=== PATIENT | male | born 1950 | race Caucasian/White ===

== ENCOUNTER → 2019-12-30 | Outpatient (CLI) | payer MEDICARE ==
--- NOTE | 2019-12-30 10:57 | RADIOLOGY REPORT (SQ) ---
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 TECHNIQUE: Multiplanar multisequence imaging performed without and with contrast including sagittal, axial and coronal T2, axial T1, axial gradient fat sat T1, axial, sagittal and coronal fat sat T1 po st contrast. CONTRAST TYPE AND DOSE: 20 mL Prohance. RENAL FUNCTION: GFR > 60. LIMITATIONS: Motion artifact. FINDINGS: LIVER: Normal size. No masses. No dilated ducts. CBD normal. SPLEEN: Normal size. No focal lesions. PANCREAS: No masses. No adjacent inflammation or peripancreatic fluid collections. Pancreatic duct no t dilated. GALLBLADDER: Surgically absent. ADRENAL GLANDS: No significant masses or asymmetry. RIGHT KIDNEY AND URETER: No masses. No hydronephrosis. LEFT KIDNEY AND URETER: No masses. No hydronephrosis. AORTA AND VESSELS: No aneurysm. No dissection. Renal arteries, SMA, celiac without stenosis. RETROPERITONEUM: No retroperitoneal adenopathy, hemorrhage or masses. BOWEL: No visualized masses. No inflammation. No significant dilatation. ABDOMINAL WALL AND PERITONEUM: No hernias. No free fluid. BONES: No acute or significant findings. OTHER: No other significant finding. IMPRESSION: NORMAL MRI OF THE ABDOMEN WITHOUT AND WITH CONTRAST. NO FOCAL HEPATIC LESIONS. TECHNICAL DOCUMENTATION: JOB ID: [id number] [employer]- All Rights Reserved Reading location - IP/workstation name: [email or web address]
== END ==
LOC: RAD 08:59
PROVIDERS: ATTEND Internal Medicine
DX: C15.5 Malignant neoplasm of lower third of esophagus (principal)
CPT/HCPCS: 82565; 74183; A9576

== ENCOUNTER 2020-01-07 11:04 | Day surgery (SDC) | payer MEDICARE ==
[~2020-01-07 11:04] MED LIST: CEFAZOLIN 1 GM/D5W RTU 1 GM/50 ML RTUPB IV ONE; CEFAZOLIN 1 GM/D5W RTU 1 GM/50 ML RTUPB IV PRN
[2020-01-07] MEDS ORDERED: LIDOCAINE 1%/EPINEPHRINE INJ 20 ML VIAL ONE (13:02)
[2020-01-07] MEDS ORDERED: ONDANSETRON HCL INJ/PF 4 MG/2 ML SDV ONE (13:16)
[2020-01-07] MEDS ORDERED: MIDAZOLAM 2 MG/2 ML INJ ONE (13:16)
[2020-01-07] MEDS ORDERED: FENTANYL CITRATE INJ/PF 100 MCG/2 ML AMPUL ONE (13:16)
[2020-01-07] MEDS ORDERED: PROPOFOL INJ 200 MG/20 ML VIAL IV ONE (13:16)
[2020-01-07] MEDS ORDERED: MEPERIDINE HCL/PF INJ 25 MG/1 ML DISP.SYRIN IV PRN (13:48)
[2020-01-07] MEDS ORDERED: PROMETHAZINE HCL INJ 25 MG/1 ML VIAL IV PRN ×2 (13:48)
[2020-01-07] MEDS ORDERED: FENTANYL CITRATE INJ/PF 100 MCG/2 ML AMPUL IV PRN ×3 (13:48)
[2020-01-07] MEDS ORDERED: DIPHENHYDRAMINE HCL 50 MG/ML VIAL IV PRN (13:48)
--- NOTE | 2020-01-07 14:20 | Discharge Summary ---
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 Date of Surgery: 01/07/20 Discharge Date: 01/07/20 Condition: Good Forms: ASU Anesthesia D/C Instruction, Discharge POC-Surgical Service Treatment or Instructions: May use catheter in 48 hours; allow Steri-Strips to fall off; follow-up with [facility] in 2 weeks; may shower in 48 hours; new preoperative medications, diet, activity Referrals: ROVERTO MORRISON MD [ACTIVE STAFF] - 01/15/20 1:00 pm Discharge Diet: As Tolerated Discharge Activity: Activity As Tolerated Home Care Assistance: None Needed Report the Following to Your Physician Immediately: Shortness of Breath, Increase in Pain, Fever over 101 Degrees, Unusual Bleeding
--- NOTE | 2020-01-07 14:25 | Operative Report ---
Operative Report DATE OF SURGERY: 01/07/20 PREOPERATIVE DIAGNOSIS: 1. Distal esophageal carcinoma. 2. Status post liver transplantation POSTOPERATIVE DIAGNOSIS: Same OPERATION: 1. Placement of right subclavian Ebrvyb-x-Xeye catheter into right internal jugular vein. 2. Use of ultrasonography intraoperatively. 3. Interpretation of intraoperative fluoroscopy SURGEON: ROVERTO MORRISON ANESTHESIA: LMAC TISSUE REMOVED OR ALTERED: None COMPLICATIONS: None ESTIMATED BLOOD LOSS: Minimal INTRAOPERATIVE FINDINGS: See below PROCEDURE: Patient was taken the preop holding area to the main operating room where LMAC anesthesia was induced. Arms were tucked at the side, neck exposed, and neck and chest clipped of hair, then prepped and draped with Betadine. Surgical plan surgical timeout conducted. Focused ultrasound of the right neck revealed a suitable, compressible right internal jugular vein. Overlying skin was anesthetized 1% plain lidocaine. A small lainey was made the skin with 11 blade. Using ultrasound as a guide, the micro needle and wire were threaded into the right internal jugular vein. A suitable site for placement of the port was chosen in the right subclavian position. The skin was anesthetized 1% plain lidocaine. A 3 cm incision was made horizontally oriented with a #15 blade. A subcutaneous pocket was developed with electrocautery. The 9 [place] catheter was then trimmed to the appropriate length, tunnel between the 2 incisions, attached to the port and secured with the plastic ring. The port was tucked into the right subclavian pocket. Under fluoroscopic guidance, the microwire was switched over to a conventional 0.030 inch guidewire. We then threaded the 9-1/2 [place] dilator introducer sheath over the wire, dilator and wire removed, and free catheter fragment and threaded into the strip away sheath. The sheath was removed leaving the cath in appropriate position with the tip in the right atrium, no evidence of ectopy and no evidence of kinking of the catheter at the neck. Using a Otto needle, the catheter through the chamber was aspirated and flushed with heparinized saline. There was no evidence of pneumothorax. Patient tolerated procedure well. Wounds closed with 3-0 Vicryl benzoin and Steri- Strips. Sponge and needle count was correct. Patient was taken to the recovery room in stable condition.
--- NOTE | 2020-01-07 14:34 | RADIOLOGY REPORT (SQ) ---
EXAM DESCRIPTION: FLUORO/CV PLACEMENT IMAGES COMPLETED DATE/TIME: 01/07/2020 2:24 pm REASON FOR STUDY: RIGHT PORT-A-CATH PLACEMENT C15.9 MALIGNANT NEOPLASM OF ESOPHAGUS, UNSPECIFIED COMPARISON: None. FLUOROSCOPY TIME: Less than 1 minute. Spot images saved to PACS. TECHNIQUE: Intra-operative images acquired during surgical procedure to evaluate progress. NUMBER OF IMAGES: 2 LIMITATIONS: None. FINDINGS: Fluoroscopy was provided for intraoperative procedure. Please refer to the operative repo rt for further discussion. IMPRESSION: IMAGE(S) OBTAINED DURING PROCEDURE. COMMENT: Quality ID [id number]: Final reports for procedures using fluoroscopy that document radiation exp osure indices, or exposure time and number of fluorographic images (if radiation exposure indices are not available) Please consult full operative report of the attending physician for description of the procedure. TECHNICAL DOCUMENTATION: JOB ID: [id number] 2010 [employer]- All Rights Reserved Reading location - IP/workstation name: [email or web address]
[2020-01-07 16:34] VITALS: BP 131/74
== END 2020-01-07 16:15 | disposition home or self-care (01) ==
LOC: OROUT 11:04
PROVIDERS: ATTEND Surgery
DX: C15.9 Malignant neoplasm of esophagus, unspecified (principal); I85.00 Esophageal varices without bleeding; J44.9 Chronic obstructive pulmonary disease, unspecified; K21.9 Gastro-esophageal reflux disease without esophagitis; Z94.4 Liver transplant status; Z87.891 Personal history of nicotine dependence; Z79.899 Other long term (current) drug therapy
CPT/HCPCS: 36561; 77001; U0003; J2250; J0690; J3010; J3490; J2405; J2704; J1642; C9803; 87635; C1752; C1788